=== PATIENT | male | born 1950 | race Caucasian/White ===

== ENCOUNTER 2022-03-16 08:22 | Emergency (ER) | payer OTHER ==
--- NOTE | 2022-03-16 08:54 | EDPHYS ---
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 08:44 Reports 20 months of doctor visits for insect bites, all over body, no fever. Has tried rn treatments for bugs as well as multiple abx treatments that didn't work. Reports diabetes is getting worse and neuropathy getting worse. [facility] and just moved here, thought he would come in to see if we have any blood tests to evaluated his bug problem. . Onset: The symptoms/episode began/occurred 20 month(s) ago. Severity of symptoms: At their worst the symptoms were mild in the emergency department the symptoms are unchanged. The patient has experienced similar episodes in the past. The patient has been recently seen by a physician:. - Family history:: not pertinent. - Hospitalizations: : No recent hospitalization is reported. ROS: 08:44 Constitutional: Negative for fever, chills, and weight loss, Eyes: Negative for injury, rn pain, redness, and discharge, Neck: Negative for injury, pain, and swelling, Cardiovascular: Negative for chest pain, palpitations, and edema, Respiratory: Negative for shortness of breath, cough, wheezing, and pleuritic chest pain, Abdomen/GI: Negative for abdominal pain, nausea, vomiting, diarrhea, and constipation, Back: Negative for injury and pain, MS/Extremity: Negative for injury and deformity, Skin: + healing sores from bug bites Neuro: Negative for headache, weakness, and seizure. Exam: 08:44 Constitutional: Disheveled patient, no acute distress, ambulatory from lobby to chair rn in ER. Head/Face: Normocephalic, atraumatic. Cardiovascular: Regular rate and rhythm. No pulse deficits. Respiratory: No increased work of breathing, no retractions or nasal flaring. Skin: Multiple open sores on arms, no cellulitis, no drainage. MS/ Extremity: Pulses equal, no cyanosis. Neuro: Awake and alert, GCS 15 Vital Signs: 08:48 BP 138 / 88; Pulse 81; Resp 16; Temp 98.0; Pulse Ox 95% on R/A; iw MDM: 08:27 Patient medically screened. rn 08:44 Differential Diagnosis bug bites, excoriations, diabetic neuropathy. Data reviewed: rn vital signs, nurses notes, and as a result, I will discharge patient. Counseling: I had a detailed discussion with the patient and/or guardian regarding: the historical points, exam findings, and any diagnostic results supporting the discharge/admit diagnosis, the need for outpatient follow up, to return to the emergency department if symptoms worsen or persist or if there are any questions or concerns that arise at home. Special discussion: I discussed with the patient/guardian in detail that at this point there is no indication for admission to the hospital. It is understood, however, that if the symptoms persist or worsen the patient needs to return immediately for re-evaluation. Based on the history and exam findings, there is no indication for further emergent testing or inpatient evaluation. I discussed with the patient/guardian the need to see the rotating field assembler for further evaluation of the symptoms. I discussed with the patient/guardian the need to see the primary care provider for further evaluation of the symptoms. 03/16 08:57 Order name: Glucose, Ancillary Testing EDMS 03/16 08:41 Order name: Glucose Level; Complete Time: 08:46 rn Administered Medications: No medications were administered Point of Care Testing: Blood Glucose: 08:46 Blood Glucose: 222 mg/dL; iw Ranges: Critical Glucose Levels:Adult <50 mg/dl or >400 mg/dl <40 mg/dl or >180 mg/dl Disposition Summary: 03/16/22 08:53 Discharge Ordered Location: Home rn Problem: chronic rn Symptoms: are unchanged rn Condition: Stable rn Diagnosis - Insect bite (nonvenomous) of right forearm, initial encounter rn - Insect bite (nonvenomous) of left forearm, initial encounter rn Followup: rn - With: Private Physician - When: As needed - Reason: Recheck today's complaints, Re-evaluation by your physician Discharge Instructions: - Discharge Summary Sheet rn - Insect Bite, Adult rn Forms: - Medication Reconciliation Form rn - Thank You Letter rn - 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
--- NOTE | 2022-03-16 08:54 | ER ---
Nurse's Notes [facility] Name: Den Palma Age: 71 yrs Sex: Male : 1950 Arrival Date: 03/16/2022 Time: 08:25 Bed DIS3 Private MD: Diagnosis: Insect bite (nonvenomous) of right forearm, initial encounter;Insect bite (nonvenomous) of left forearm, initial encounter Presentation: 03/16 08:29 Chief complaint: Patient states: has bug bites on his arms and legs from 20 months ago, iw he's been losing his eyesight and has SOB, [facility]. Coronavirus screen: At this time, the client does not indicate any symptoms associated with coronavirus-19. Ebola Screen: Patient negative for fever greater than or equal to 101.5 degrees Fahrenheit, and additional compatible Ebola Virus Disease symptoms Patient denies exposure to infectious person. Patient denies travel to an Ebola-affected area in the 21 days before illness onset. No symptoms or risks identified at this time. Onset of symptoms was 2020. 08:29 Method Of Arrival: Ambulatory iw 08:29 Acuity: AIXA 3 iw 09:04 Initial Sepsis Screen: Does the patient meet any 2 criteria? No. Patient's initial iw sepsis screen is negative. Does the patient have a suspected source of infection? No. Patient's initial sepsis screen is negative. Risk Assessment: Do you want to hurt yourself or someone else? Patient reports no desire to harm self or others. Triage Assessment: 09:03 General: Appears in no apparent distress. Behavior is calm, cooperative. iw - Family history:: not pertinent. - Hospitalizations: : No recent hospitalization is reported. Screenin:03 Abuse screen: Denies threats or abuse. Denies injuries from another. Nutritional iw screening: No deficits noted. Tuberculosis screening: No symptoms or risk factors identified. Fall Risk None identified. Vital Signs: 08:48 BP 138 / 88; Pulse 81; Resp 16; Temp 98.0; Pulse Ox 95% on R/A; iw ED Course: 08:25 Patient arrived in ED. mr 08:27 Murtaza Ellis MD is Attending Physician. rn 08:30 Triage completed. iw 08:46 Laura Dunlap RN is Primary Nurse. iw 09:03 No provider procedures requiring assistance completed. Patient did not have IV access iw during this emergency room visit. Administered Medications: No medications were administered Point of Care Testing: Blood Glucose: 08:46 Blood Glucose: 222 mg/dL; iw Ranges: Outcome: 08:53 Discharge ordered by . rn 09:03 Discharged to home ambulatory. iw 09:03 Condition: good 09:03 Discharge instructions given to patient, Instructed on discharge instructions, follow up and referral plans. Demonstrated understanding of instructions, follow-up care. 09:04 Patient left the ED. iw Signatures: Shannan Olivier Irene, RN RN iw Murtaza Ellis MD MD rn
[2022-03-17 19:32] VITALS: BP 138/88; TEMP 98; O2SAT 95
== END 2022-03-16 09:04 | disposition home or self-care (01) ==
LOC: ER 08:22
DX: S50.862A Insect bite (nonvenomous) of left forearm, initial encounter (principal); S50.861A Insect bite (nonvenomous) of right forearm, initial encounter
CPT/HCPCS: 82947; 99282